=== PATIENT | female | born 1960 | race Caucasian/White ===

== ENCOUNTER → 2018-06-11 | Outpatient (CLI) | payer SELFPAY ==
[2018-06-11 16:25] LABS: ALBUMIN 3.3 g/dL (3.5-5.0); CALCIUM 8.4 mg/dL (8.4-10.2); POTASSIUM 3.3 mmol/L (3.6-5.0); TOTAL BILIRUBIN 0.3 mg/dL (0.2-1.3); TOTAL PROTEIN 5.7 g/dL (6.3-8.2)
== END ==
LOC: LAB 15:35
PROVIDERS: Nurse Practitioner Family
DX: R56.9 Unspecified convulsions (principal)

== ENCOUNTER → 2018-06-11 | Outpatient (CLI) | payer SELFPAY ==
[2018-06-11 10:48] LABS: HEMATOCRIT 29.9 % (37.0-47.0); HEMOGLOBIN 9.8 g/dL (12.5-16.0); MEAN PLATELET VOLUME 11.6 fl (7.4-10.4); RED BLOOD COUNT 3.3 M/mm3 (4.10-5.30); RED CELL DISTRIBUTION WIDTH 14.5 % (11.5-14.5); WHITE BLOOD COUNT 4.4 K/mm3 (4.8-10.8)
[2018-06-11 11:09] LABS: ALBUMIN 3.3 g/dL (3.5-5.0); CALCIUM 8.4 mg/dL (8.4-10.2); POTASSIUM 3.4 mmol/L (3.6-5.0); TOTAL BILIRUBIN 0.3 mg/dL (0.2-1.3); TOTAL PROTEIN 5.9 g/dL (6.3-8.2)
== END ==
LOC: LAB 06:52
PROVIDERS: Family Medicine
DX: E87.1 Hypo-osmolality and hyponatremia (principal)

== ENCOUNTER → 2018-06-12 | Outpatient (CLI) | payer OTHER ==
[2018-06-12 15:25] LABS: ALBUMIN 3.1 g/dL (3.5-5.0); CALCIUM 8.6 mg/dL (8.4-10.2); POTASSIUM 3.6 mmol/L (3.6-5.0); TOTAL BILIRUBIN 0.3 mg/dL (0.2-1.3); TOTAL PROTEIN 5.3 g/dL (6.3-8.2)
[2018-06-13 12:44] LABS: HEPATITIS C ANTIBODY Negative (Negative)
[2018-06-14 14:00] LABS: LAMOTRIGINE, SERUM 4.3 mcg/mL (())
[2018-06-14 14:22] LABS: LEVETIRACETAM (KEPPRA) 39.4 mcg/mL (())
== END ==
LOC: LAB 07:34
PROVIDERS: Family Medicine
DX: L50.9 Urticaria, unspecified (principal); K59.00 Constipation, unspecified

== ENCOUNTER → 2018-06-25 | Outpatient (CLI) | payer OTHER ==
[2018-06-25 06:19] LABS: HEMATOCRIT 34.6 % (37.0-47.0); HEMOGLOBIN 11.2 g/dL (12.5-16.0); MEAN PLATELET VOLUME 11.7 fl (7.4-10.4); RED BLOOD COUNT 3.82 M/mm3 (4.10-5.30); RED CELL DISTRIBUTION WIDTH 15.1 % (11.5-14.5); WHITE BLOOD COUNT 6.3 K/mm3 (4.8-10.8)
[2018-06-25 06:24] LABS: ALBUMIN 3.5 g/dL (3.5-5.0); CALCIUM 9.1 mg/dL (8.4-10.2); POTASSIUM 4.3 mmol/L (3.6-5.0); TOTAL BILIRUBIN 0.3 mg/dL (0.2-1.3); TOTAL PROTEIN 5.7 g/dL (6.3-8.2)
[2018-06-25 06:32] LABS: URINE APPEARANCE CLEAR; URINE BILIRUBIN NEGATIVE (NEGATIVE); URINE BLOOD NEGATIVE (NEGATIVE); URINE COLOR YELLOW; URINE GLUCOSE NEGATIVE (NEGATIVE); URINE KETONE NEGATIVE (NEGATIVE); URINE LEUKOCYTE ESTERASE TRACE (NEGATIVE); URINE NITRATE NEGATIVE (NEGATIVE); URINE PROTEIN(semi-quant) NEGATIVE (NEGATIVE); URINE UROBILINOGEN NORMAL (NORMAL); URINE WBC 0-1 /hpf (0-3)
== END ==
LOC: LAB 05:40
PROVIDERS: Family Medicine
DX: R31.9 Hematuria, unspecified (principal); R94.5 Abnormal results of liver function studies; D64.9 Anemia, unspecified; R79.89 Other specified abnormal findings of blood chemistry

== ENCOUNTER → 2018-07-15 | Outpatient (CLI) | payer OTHER ==
[2018-07-15 08:31] LABS: ALBUMIN 3.9 g/dL (3.5-5.0); CALCIUM 9.7 mg/dL (8.4-10.2); POTASSIUM 4.6 mmol/L (3.6-5.0); TOTAL BILIRUBIN 0.2 mg/dL (0.2-1.3); TOTAL PROTEIN 6.2 g/dL (6.3-8.2)
[2018-07-15 08:39] LABS: HEMATOCRIT 37.5 % (37.0-47.0); HEMOGLOBIN 11.8 g/dL (12.5-16.0); MEAN CELL VOLUME 88 fl (78-100); MEAN CORPUSCULAR HEMOGLOBIN 28 pg (27-31); MEAN CORPUSCULAR HGB CONC 32 g/dL (33-37); MEAN PLATELET VOLUME 10.4 fl (7.4-10.4); PLATELET COUNT 308 K/mm3 (130-400); RED BLOOD COUNT 4.27 M/mm3 (4.10-5.30); RED CELL DISTRIBUTION WIDTH 15.2 % (11.5-14.5); WHITE BLOOD COUNT 11.3 K/mm3 (4.8-10.8)
[2018-07-15 08:50] LABS: URINE APPEARANCE CLEAR; URINE BILIRUBIN NEGATIVE (NEGATIVE); URINE BLOOD NEGATIVE (NEGATIVE); URINE COLOR YELLOW; URINE GLUCOSE NEGATIVE (NEGATIVE); URINE KETONE NEGATIVE (NEGATIVE); URINE LEUKOCYTE ESTERASE 1+ (NEGATIVE); URINE NITRATE NEGATIVE (NEGATIVE); URINE PROTEIN(semi-quant) NEGATIVE (NEGATIVE); URINE UROBILINOGEN NORMAL (NORMAL)
[2018-07-15 09:45] LABS: BAND 1 % (0-10); LYMPHOCYTE 6 % (20-51); MONOCYTE 5 % (3-10); NEUTROPHILS 87 % (42-75); OVALOCYTES 2+
== END ==
LOC: LAB 08:10
PROVIDERS: Family Medicine
DX: D64.9 Anemia, unspecified (principal); R31.9 Hematuria, unspecified; R94.5 Abnormal results of liver function studies; R79.89 Other specified abnormal findings of blood chemistry